=== PATIENT | male | born 1990 | race African-American/Black ===

== ENCOUNTER 2020-10-21 01:33 | Emergency (ER) | payer OTHER ==
[~2020-10-21] VITALS: Ht 172.7 cm; Wt 90.8 kg
[2020-10-21 01:35] VITALS: BP 124/77
--- NOTE | 2020-10-21 01:35 | NUR ---
TO BED AMBULATORY
--- NOTE | 2020-10-21 01:49 | NUR ---
RECEIVED IN BED 3 WITH C/O RIGHT KNEE PAIN X SEVERAL MONTHS. "I ALSO WANTED TO BE CHECKED FOR DIABETES. IS AWAKE AND ALERT, AMBULATES WITH STEADY GAIT
--- NOTE | 2020-10-21 02:01 | NUR ---
ACCUCHECK = 70
--- NOTE | 2020-10-21 02:12 | NUR ---
Patient discharged with v/s stable. Written and verbal after care instructions given and explained. Patient verbalized understanding. Ambulatory with steady gait. All questions addressed prior to discharge. Advised to follow up with PMD.
== END 2020-10-21 02:12 | disposition home or self-care (01) ==
LOC: MED 01:33
DX: E11.649 Type 2 diabetes mellitus with hypoglycemia without coma (principal); M25.561 Pain in right knee; X58.XXXA Exposure to other specified factors, initial encounter; Y93.89 Activity, other specified; Y92.89 Other specified places as the place of occurrence of the external cause; Y99.8 Other external cause status
CPT/HCPCS: 99282

== ENCOUNTER 2021-02-12 21:20 | Emergency (ER) | payer OTHER ==
[~2021-02-12] VITALS: Ht 175.3 cm; Wt 104.3 kg
--- NOTE | 2021-02-12 21:20 | NUR ---
PT DEE JUNE, PREBOOK. TAKEN TO CHAIR
[2021-02-12 21:21] VITALS: BP 112/78
[2021-02-12] MEDS ORDERED: IBUPROFEN 800 MG TAB PO ONE (23:10)
--- NOTE | 2021-02-12 23:39 | NUR ---
PT TAKEN TO CT
--- NOTE | 2021-02-12 23:52 | NUR ---
PT RETURN FROM CT
[2021-02-13] MEDS ORDERED: IBUPROFEN 800 MG TAB ONE (00:44)
[2021-02-13 01:04] VITALS: BP 116/81
--- NOTE | 2021-02-13 01:05 | NUR ---
PATIENT [facility] [employer]. PATIENT EXAMINED BY DR. REVELES. PATIENT MEDICALLY CLEARED AND RELEASED IN CUSTODY IN STABLE CONDITION. ORIGINAL PRE-BOOK FORM GIVEN TO OFFICER NICOLAS.
== END 2021-02-13 01:05 ==
LOC: MED 21:20
DX: S00.83XA Contusion of other part of head, initial encounter (principal); Z02.89 Encounter for other administrative examinations; X58.XXXA Exposure to other specified factors, initial encounter; Y93.61 Activity, american tackle football; Y92.89 Other specified places as the place of occurrence of the external cause; Y99.8 Other external cause status
CPT/HCPCS: 70450; 70486; 90471; 90715; 99285

== ENCOUNTER 2023-08-21 04:15 | Emergency (ER) | payer OTHER ==
[~2023-08-21] VITALS: Ht 172.7 cm; Wt 97.5 kg
[2023-08-21 04:15] VITALS: BP 105/60; PULSE 60; RESP 20; TEMP 98; O2SAT 100
[2023-08-21] MEDS ORDERED: ACET-5629 PO (05:12)
[2023-08-21] MEDS ORDERED: IBUP-2809 PO (05:12)
[2023-08-21] MEDS ORDERED: ONDANSETRON 4 MG/2 ML VIAL ONE (05:17)
[2023-08-21] MEDS: fentaNYL citrate 0.05 MG/ML VIAL IVP ONE (05:36)
[2023-08-21] MEDS: MORPHINE SULFATE 10 MG/ML VIAL IVP ONE (05:41)
[2023-08-21] MEDS: ONDANSETRON 4 MG/2 ML VIAL IVP ONE (06:22)
[2023-08-21 06:23] VITALS: BP 114/55; PULSE 62; RESP 11; O2SAT 97
== END 2023-08-21 07:13 | disposition home or self-care (01) ==
LOC: MED 04:15
DX: S82.401A Unspecified fracture of shaft of right fibula, initial encounter for closed fracture (principal); Y99.8 Other external cause status; W19.XXXA Unspecified fall, initial encounter; Y93.89 Activity, other specified; Y92.89 Other specified places as the place of occurrence of the external cause; Z79.1 Long term (current) use of non-steroidal anti-inflammatories (NSAID)
CPT/HCPCS: 29515; 73562; 73610; 96374; 96375; 99284; J2270; J2405; J3010

== ENCOUNTER 2023-09-13 03:15 | Emergency (ER) | payer OTHER ==
[~2023-09-13] VITALS: Ht 172.7 cm; Wt 99.8 kg
[~2023-09-13 03:15] MED LIST: ACET-5629 PO; IBUP-2809 PO
[2023-09-13 03:23] VITALS: BP 121/80; PULSE 74; RESP 16; TEMP 97.4; O2SAT 100
[2023-09-13 03:45] VITALS: O2SAT 98
[2023-09-13 06:20] VITALS: BP 123/70; PULSE 61; RESP 15; TEMP 97.9; O2SAT 98
== END 2023-09-13 06:20 | disposition home or self-care (01) ==
LOC: MED 03:15
DX: S82.891A Other fracture of right lower leg, initial encounter for closed fracture (principal); Z79.1 Long term (current) use of non-steroidal anti-inflammatories (NSAID); Z79.899 Other long term (current) drug therapy; X58.XXXA Exposure to other specified factors, initial encounter; Y93.89 Activity, other specified; Y92.89 Other specified places as the place of occurrence of the external cause; Y99.8 Other external cause status
CPT/HCPCS: 73610; 99283

== ENCOUNTER 2023-09-24 04:33 | Emergency (ER) | payer OTHER ==
[~2023-09-24] VITALS: Ht 172.7 cm; Wt 99.8 kg
[2023-09-24 04:46] VITALS: BP 132/72; PULSE 95; RESP 16; TEMP 97.6; O2SAT 98
[2023-09-24] MEDS ORDERED: IBUP-1842 PO (06:56)
[2023-09-24] MEDS ORDERED: ACET-5629 PO (06:57)
[2023-09-24 07:03] VITALS: BP 134/76; PULSE 86; RESP 16; TEMP 97.6; O2SAT 98
== END 2023-09-24 07:03 | disposition home or self-care (01) ==
LOC: MED 04:33
DX: S82.891A Other fracture of right lower leg, initial encounter for closed fracture (principal); Z47.89 Encounter for other orthopedic aftercare; Z79.1 Long term (current) use of non-steroidal anti-inflammatories (NSAID); Z79.899 Other long term (current) drug therapy; X58.XXXA Exposure to other specified factors, initial encounter; Y93.89 Activity, other specified; Y92.89 Other specified places as the place of occurrence of the external cause; Y99.8 Other external cause status
CPT/HCPCS: 99283

== ENCOUNTER 2023-09-28 01:06 | Emergency (ER) | payer OTHER ==
[~2023-09-28] VITALS: Ht 172.7 cm; Wt 99.8 kg
[~2023-09-28 01:06] MED LIST changes: +IBUP-1842 PO
[2023-09-28 01:27] VITALS: BP 116/59; PULSE 94; RESP 16; TEMP 96.2; O2SAT 99
[2023-09-28] MEDS: HYDROcodone/APAP 5/325 MG 1 TAB TAB PO ONE (05:13)
== END 2023-09-28 05:25 | disposition home or self-care (01) ==
LOC: MED 01:06
DX: G89.29 Other chronic pain (principal); M25.571 Pain in right ankle and joints of right foot; M25.572 Pain in left ankle and joints of left foot; Z98.890 Other specified postprocedural states; Z79.899 Other long term (current) drug therapy
CPT/HCPCS: 99283

== ENCOUNTER 2023-11-10 04:13 | Emergency (ER) | payer OTHER ==
[~2023-11-10] VITALS: Ht 170.2 cm; Wt 81.6 kg
[2023-11-10 04:20] VITALS: BP 135/78; PULSE 65; RESP 14; TEMP 97.3; O2SAT 99
== END 2023-11-10 05:09 | disposition left against medical advice (07) ==
LOC: MED 04:13
DX: M25.571 Pain in right ankle and joints of right foot (principal); Z53.21 Procedure and treatment not carried out due to patient leaving prior to being seen by health care provider

== ENCOUNTER 2023-11-18 22:52 | Emergency (ER) | payer OTHER ==
[~2023-11-18] VITALS: Ht 175.3 cm; Wt 81.6 kg
[2023-11-18 23:15] VITALS: BP 122/76; PULSE 76; RESP 14; TEMP 98.1; O2SAT 99
[2023-11-19] MEDS ORDERED: ACET-5629 PO (00:28)
[2023-11-19] MEDS: oxyCODONE/APAP 5/325 MG 1 TAB TAB PO ONE (00:30)
== END 2023-11-19 00:38 | disposition home or self-care (01) ==
LOC: MED 22:52
DX: G89.29 Other chronic pain (principal); M25.571 Pain in right ankle and joints of right foot; Z98.890 Other specified postprocedural states; Z79.899 Other long term (current) drug therapy
CPT/HCPCS: 73610; 99283

== ENCOUNTER 2023-12-11 01:05 | Emergency (ER) | payer OTHER ==
[~2023-12-11] VITALS: Ht 175.3 cm; Wt 99.8 kg
[2023-12-11 01:14] VITALS: BP 129/81; PULSE 76; RESP 16; TEMP 97.7; O2SAT 98
== END 2023-12-11 01:31 | disposition left against medical advice (07) ==
LOC: MED 01:05
DX: M25.571 Pain in right ankle and joints of right foot (principal); Z53.21 Procedure and treatment not carried out due to patient leaving prior to being seen by health care provider